=== PATIENT | male | born 1965 | race African-American/Black ===

== ENCOUNTER 2016-08-15 03:31 | Emergency (ER) | payer MEDICAID ==
[~2016-08-15] VITALS: Ht 185.4 cm; Wt 88.0 kg
[~2016-08-15 03:31] MED LIST: INSULIN
[2016-08-15] MEDS ORDERED: KETOROLAC 60MG/2ML VIAL IM ONE (05:00)
[2016-08-15 05:30] VITALS: BP 158/93
== END 2016-08-15 07:00 | disposition home or self-care (01) ==
LOC: ER 03:53
DX: S80.02XA Contusion of left knee, initial encounter (principal); E11.9 Type 2 diabetes mellitus without complications; I10 Essential (primary) hypertension; Z79.4 Long term (current) use of insulin; W01.0XXA Fall on same level from slipping, tripping and stumbling without subsequent striking against object, initial encounter; Y93.89 Activity, other specified; Y92.89 Other specified places as the place of occurrence of the external cause; Y99.8 Other external cause status
CPT/HCPCS: 73562; 82962; 96372; 99284; J1885

== ENCOUNTER 2016-08-19 12:29 | Emergency (ER) | payer MEDICAID ==
[~2016-08-19] VITALS: Ht 182.9 cm; Wt 81.0 kg
[2016-08-19 12:37] VITALS: BP 128/76
[2016-08-19] MEDS ORDERED: KETOROLAC 60MG/2ML VIAL IM ONE (13:15)
== END 2016-08-19 13:56 | disposition home or self-care (01) ==
LOC: ER 12:35
DX: M54.5 Low back pain (principal); E11.9 Type 2 diabetes mellitus without complications; E78.00 Pure hypercholesterolemia, unspecified; I10 Essential (primary) hypertension
CPT/HCPCS: 96372; 99283; J1885

== ENCOUNTER 2016-11-06 06:00 | Emergency (ER) | payer MEDICAID ==
[~2016-11-06] VITALS: Ht 182.9 cm; Wt 100.0 kg
[2016-11-06] MEDS ORDERED: TRAMADOL 50MG TABLET PO ONE (06:45)
[2016-11-06] MEDS ORDERED: TETANUS, DIPHTHERIA, PERTUSSIS VAC/PF 0.5ML (>7YR OLD) IM ONE (06:45)
[2016-11-06 09:23] VITALS: BP 150/89
== END 2016-11-06 09:24 | disposition home or self-care (01) ==
LOC: ER 06:00
DX: M25.521 Pain in right elbow (principal); E11.9 Type 2 diabetes mellitus without complications
CPT/HCPCS: 73060; 73070; 82962; 90471; 90715; 99284; A4565

== ENCOUNTER 2017-03-16 10:02 | Emergency (ER) | payer MEDICAID ==
[~2017-03-16] VITALS: Ht 185.4 cm; Wt 91.0 kg
[2017-03-16] MEDS ORDERED: KETOROLAC 60MG/2ML VIAL IM ONE (13:00)
[2017-03-16] MEDS ORDERED: HYDROCODONE/ACETAMINOPHEN 5/325MG TABLET PO ONE (13:00)
[2017-03-16 13:14] VITALS: BP 144/90
== END 2017-03-16 14:23 | disposition left against medical advice (07) ==
LOC: ER 12:05
DX: M25.551 Pain in right hip (principal); V00.148A Other scooter (nonmotorized) accident, initial encounter; Y92.89 Other specified places as the place of occurrence of the external cause; F12.90 Cannabis use, unspecified, uncomplicated; E11.9 Type 2 diabetes mellitus without complications; Z79.4 Long term (current) use of insulin
CPT/HCPCS: 73502; 96372; 99284; J1885

== ENCOUNTER 2017-06-09 05:29 | Emergency (ER) | payer MEDICAID ==
[~2017-06-09] VITALS: Ht 185.4 cm; Wt 91.0 kg
[2017-06-09] MEDS ORDERED: HYDROCODONE/ACETAMINOPHEN 5/325MG TABLET PO ONE (07:00)
[2017-06-09] MEDS ORDERED: TETANUS AND DIPHTHERIA TOX/PF 0.5ML SYR (ADULT) IM ONE (07:15)
[2017-06-09] MEDS ORDERED: TETANUS, DIPHTHERIA, PERTUSSIS VAC/PF 0.5ML (>7YR OLD) IM ONE (07:41)
[2017-06-09 08:05] LABS: BASOPHILS % 0.4 % (0.0-2.0); EOSINOPHILS % 0.3 % (0.0-5.0); HEMATOCRIT. 41.8 % (42.0-52.0); HEMOGLOBIN. 13.6 g/dL (14.0-18.0); LYMPHOCYTES % 13.6 % (20.0-50.0); MEAN CORPUSCULAR VOLUME 82.9 fL (80.0-94.0); MEAN PLATELET VOLUME 9.4 fl (7.4-10.4); MONOCYTES % 5.5 % (2.0-8.0); NEUTROPHILS % 80.2 % (40.0-76.0); PLATELET 206 x1000/uL (130-400); RED BLOOD CELL COUNT 5.04 mill/uL (4.7-6.1); RED CELL DISTRIBUTION WIDTH 12.7 % (11.6-14.6)
[2017-06-09 08:11] LABS: CHLORIDE 103 mEq/L (98-107)
[2017-06-09 08:19] LABS: PROTHROMBIN TIME 10.7 sec (9.4-11.6)
[2017-06-09 08:21] LABS: CARBON DIOXIDE 30 mEq/L (21-32)
[2017-06-09] MEDS ORDERED: LIDOCAINE HCL/PF 1% 2ML VIAL INFIL ONE (08:30)
[2017-06-09] MEDS ORDERED: LIDOCAINE HCL 1% 20ML VIAL (Pyxis) INJ INFIL ONE (08:45)
[2017-06-09 09:43] VITALS: BP 136/99
[2017-06-09] MEDS ORDERED: BACITRACIN ZINC OINT UDPKT TOP ONE (09:45)
== END 2017-06-09 09:56 | disposition home or self-care (01) ==
LOC: ER 05:29
DX: S20.212A Contusion of left front wall of thorax, initial encounter (principal); S00.01XA Abrasion of scalp, initial encounter; S61.212A Laceration without foreign body of right middle finger without damage to nail, initial encounter; Y93.55 Activity, bike riding; V16.4XXA Pedal cycle driver injured in collision with other nonmotor vehicle in traffic accident, initial encounter; Y92.414 Local residential or business street as the place of occurrence of the external cause; E11.9 Type 2 diabetes mellitus without complications; I10 Essential (primary) hypertension; Z23 Encounter for immunization; Z79.4 Long term (current) use of insulin; D72.829 Elevated white blood cell count, unspecified; R79.89 Other specified abnormal findings of blood chemistry
CPT/HCPCS: 12001; 36415; 71101; 80053; 85025; 85610; 90471; 90715; 99285; J3490; X7700; Z7610; 90714

== ENCOUNTER 2017-06-10 07:33 | Emergency (ER) | payer MEDICAID ==
[~2017-06-10] VITALS: Ht 177.8 cm; Wt 80.0 kg
[2017-06-10] MEDS ORDERED: ACETAMINOPHEN 500MG TABLET PO ONE (10:30)
[2017-06-10] MEDS ORDERED: IBUPROFEN 600MG TABLET PO ONE (11:00)
[2017-06-10 12:15] VITALS: BP 131/78
== END 2017-06-10 12:17 | disposition home or self-care (01) ==
LOC: ER 07:33
DX: S80.02XA Contusion of left knee, initial encounter (principal); S60.221A Contusion of right hand, initial encounter; I10 Essential (primary) hypertension; E11.9 Type 2 diabetes mellitus without complications; Z79.4 Long term (current) use of insulin; V13.4XXA Pedal cycle driver injured in collision with car, pick-up truck or van in traffic accident, initial encounter; Y93.55 Activity, bike riding; Y92.89 Other specified places as the place of occurrence of the external cause; Y99.8 Other external cause status
CPT/HCPCS: 73130; 73562; 99284; Z7610

== ENCOUNTER 2017-06-15 10:33 | Emergency (ER) | payer MEDICAID ==
[~2017-06-15] VITALS: Ht 177.8 cm; Wt 89.0 kg
[2017-06-15 11:02] VITALS: BP 147/92
== END 2017-06-15 14:33 | disposition home or self-care (01) ==
LOC: ER 12:43
DX: Z48.02 Encounter for removal of sutures (principal)
CPT/HCPCS: 99281; Z7610

== ENCOUNTER 2017-11-06 07:08 | Emergency (ER) | payer MEDICAID ==
[~2017-11-06] VITALS: Ht 185.4 cm; Wt 87.0 kg
[2017-11-06] MEDS ORDERED: IBUPROFEN 600MG TABLET PO ONE (09:15)
[2017-11-06 10:07] VITALS: BP 139/93
== END 2017-11-06 10:21 | disposition home or self-care (01) ==
LOC: ER 07:08
DX: S93.492A Sprain of other ligament of left ankle, initial encounter (principal); E11.9 Type 2 diabetes mellitus without complications; I10 Essential (primary) hypertension; Z79.4 Long term (current) use of insulin; X50.1XXA Overexertion from prolonged static or awkward postures, initial encounter; Y93.89 Activity, other specified; Y92.89 Other specified places as the place of occurrence of the external cause; Y99.8 Other external cause status
CPT/HCPCS: 73610; 99284; Z7610

== ENCOUNTER 2018-02-01 15:26 | Emergency (ER) | payer MEDICAID ==
[~2018-02-01] VITALS: Ht 167.6 cm; Wt 94.3 kg
[2018-02-01] MEDS ORDERED: DIPHENHYDRAMINE 50MG/ML VIAL IV ONE (16:00)
[2018-02-01] MEDS ORDERED: MORPHINE SULFATE 2 MG/ML CPJ (NOT FOR IM USE) IV ONE (16:00)
[2018-02-01] MEDS ORDERED: METOCLOPRAMIDE HCL 10MG/2ML VIAL IV ONE (16:00)
[2018-02-01 17:16] LABS: CLARITY URINE CLEAR (CLEAR); COLOR URINE YELLOW (YELLOW); KETONES URINE NEGATIVE (NEGATIVE); LEUKOCYTE ESTERASE URINE NEGATIVE (NEGATIVE); NITRITE URINE NEGATIVE (NEGATIVE); OCCULT BLOOD URINE NEGATIVE (NEGATIVE); PH URINE 5.5 (4.5-8.0); PROTEIN URINE TRACE (NEGATIVE); SPECIFIC GRAVITY URINE 1.015 (1.005-1.030); UROBILINOGEN URINE 0.2 E.U./dL (0.2-1.0)
[2018-02-01 17:17] LABS: BASOPHILS % 0.3 % (0.0-2.0); EOSINOPHILS % 0.7 % (0.0-5.0); HEMATOCRIT. 40.4 % (42.0-52.0); HEMOGLOBIN. 13.4 g/dL (14.0-18.0); LYMPHOCYTES % 18.6 % (20.0-50.0); MEAN CORPUSCULAR HEMOGLOBIN 27.7 pg (28.0-32.0); MEAN CORPUSCULAR VOLUME 83.8 fL (80.0-94.0); MEAN PLATELET VOLUME 8.8 fl (7.4-10.4); MONOCYTES % 4.7 % (2.0-8.0); NEUTROPHILS % 75.7 % (40.0-76.0); PLATELET 266 x1000/uL (130-400); RED BLOOD CELL COUNT 4.82 mill/uL (4.7-6.1); RED CELL DISTRIBUTION WIDTH 13.6 % (11.6-14.6)
[2018-02-01 17:22] LABS: CHLORIDE 99 mEq/L (98-107)
[2018-02-01 17:23] LABS: PROTHROMBIN TIME 10.2 sec (9.1-11.1)
[2018-02-01 17:25] LABS: ETHANOL BLOOD < 10 mg/dL
[2018-02-01 17:28] LABS: LDL CHOLESTEROL 114 mg/dL (5-100)
[2018-02-01 17:28] LABS: *AMPHETAMINES SCREEN URINE NEGATIVE (NEGATIVE); *BARBITURATES SCREEN URINE NEGATIVE (NEGATIVE); *BENZODIAZEPINES SCREEN URINE NEGATIVE (NEGATIVE); *COCAINE SCREEN URINE NEGATIVE (NEGATIVE); METHADONE URINE SCREEN NEGATIVE (NEGATIVE)
[2018-02-01 17:29] LABS: CANNABINOID URINE SCREEN PRESUMTIVE POSITIVE (NEGATIVE); OPIATES URINE SCREEN NEGATIVE (NEGATIVE); PHENCYCLIDINE URINE SCREEN NEGATIVE (NEGATIVE)
[2018-02-01] MEDS ORDERED: ASPIRIN 325MG EC TABLET PO NR (18:15)
[2018-02-01 19:08] VITALS: BP 152/102
== END 2018-02-01 19:21 | disposition left against medical advice (07) ==
LOC: ER 15:26
DX: R51 Headache (principal); R29.810 Facial weakness; E11.9 Type 2 diabetes mellitus without complications; Z79.4 Long term (current) use of insulin
CPT/HCPCS: 36415; 70450; 71045; 80053; 80305; 81003; 82962; 83721; 84484; 85025; 85610; 93005; 96374; 96375; 99285; G0482; J1200; J2270; J2765; Z7610

== ENCOUNTER 2018-02-15 04:52 | Emergency (ER) | payer MEDICAID ==
[~2018-02-15] VITALS: Ht 185.4 cm; Wt 74.0 kg
[2018-02-15] MEDS ORDERED: KETOROLAC 15MG/ML VIAL IM ONE (08:00)
[2018-02-15 09:46] VITALS: BP 140/86
== END 2018-02-15 09:49 | disposition home or self-care (01) ==
LOC: ER 04:52
DX: M25.562 Pain in left knee (principal); E11.9 Type 2 diabetes mellitus without complications; F11.10 Opioid abuse, uncomplicated; W01.0XXA Fall on same level from slipping, tripping and stumbling without subsequent striking against object, initial encounter; Y93.89 Activity, other specified; Y92.018 Other place in single-family (private) house as the place of occurrence of the external cause
CPT/HCPCS: 73562; 96372; 99284; J1885

== ENCOUNTER 2018-11-12 04:32 | Emergency (ER) | payer MEDICAID ==
[~2018-11-12] VITALS: Ht 185.4 cm; Wt 91.0 kg
[2018-11-12] MEDS ORDERED: IBUPROFEN 600MG TABLET PO ONE (06:45)
[2018-11-12] MEDS ORDERED: KETOROLAC 30MG/ML VIAL IM ONE (07:15)
[2018-11-12 09:31] VITALS: BP 160/98
== END 2018-11-12 09:37 | disposition home or self-care (01) ==
LOC: ER 04:32
DX: S93.601A Unspecified sprain of right foot, initial encounter (principal); S93.401A Sprain of unspecified ligament of right ankle, initial encounter; E11.9 Type 2 diabetes mellitus without complications; W01.0XXA Fall on same level from slipping, tripping and stumbling without subsequent striking against object, initial encounter; Y93.89 Activity, other specified; Y92.89 Other specified places as the place of occurrence of the external cause; Y99.8 Other external cause status
CPT/HCPCS: 73610; 73630; 96372; 99283; J1885

== ENCOUNTER 2018-12-19 13:08 | Emergency (ER) | payer MEDICAID ==
[~2018-12-19] VITALS: Ht 208.3 cm; Wt 91.0 kg
[2018-12-19] MEDS: HYDROCODONE/ACETAMINOPHEN 5/325MG TABLET PO NR ×2 (16:22→16:32)
[2018-12-19 16:36] VITALS: BP 145/78
== END 2018-12-19 16:40 | disposition home or self-care (01) ==
LOC: ER 15:04
DX: S02.80XA Fracture of other specified skull and facial bones, unspecified side, initial encounter for closed fracture (principal); E11.9 Type 2 diabetes mellitus without complications; Y08.89XA Assault by other specified means, initial encounter; Y93.89 Activity, other specified; Y92.89 Other specified places as the place of occurrence of the external cause; Y99.8 Other external cause status
CPT/HCPCS: 70486; 99284

== ENCOUNTER 2019-01-26 22:46 | Emergency (ER) | payer MEDICAID ==
[~2019-01-26] VITALS: Ht 185.4 cm; Wt 90.0 kg
[2019-01-27] MEDS ORDERED: KETOROLAC 60MG/2ML VIAL IM ONE (03:00)
[2019-01-27 04:45] VITALS: BP 153/97
== END 2019-01-27 04:56 | disposition home or self-care (01) ==
LOC: ER 22:46
DX: R51 Headache (principal); E11.9 Type 2 diabetes mellitus without complications; I10 Essential (primary) hypertension; Z79.4 Long term (current) use of insulin
CPT/HCPCS: 96372; 99283; J1885

== ENCOUNTER 2019-10-04 08:24 | Emergency (ER) | payer MEDICAID ==
[~2019-10-04] VITALS: Ht 185.4 cm; Wt 88.0 kg
[2019-10-04] MEDS ORDERED: KETOROLAC 30MG/ML VIAL IM ONE (09:00)
[2019-10-04 10:36] VITALS: BP 185/90
== END 2019-10-04 10:37 | disposition home or self-care (01) ==
LOC: ER 08:24
DX: M25.551 Pain in right hip (principal); E11.9 Type 2 diabetes mellitus without complications; I10 Essential (primary) hypertension; V18.0XXA Pedal cycle driver injured in noncollision transport accident in nontraffic accident, initial encounter; Y93.89 Activity, other specified; Y92.89 Other specified places as the place of occurrence of the external cause; Y99.8 Other external cause status
CPT/HCPCS: 73502; 96372; 99283; J1885

== ENCOUNTER 2020-03-08 00:47 | Emergency (ER) | payer MEDICAID ==
[~2020-03-08] VITALS: Ht 185.4 cm; Wt 91.0 kg
[2020-03-08] MEDS ORDERED: MORPHINE SULFATE 10 MG/ML CPJ IM ONE (01:15)
[2020-03-08] MEDS ORDERED: MORPHINE SULFATE 4 MG/ML CPJ (NOT FOR IM USE) IV ONE (03:00)
[2020-03-08] MEDS ORDERED: ONDANSETRON HCL 4MG/2ML INJ IV ONE (03:00)
[2020-03-08 03:57] VITALS: BP 149/99
== END 2020-03-08 03:57 | disposition home or self-care (01) ==
LOC: ER 00:47
DX: S00.83XA Contusion of other part of head, initial encounter (principal); E11.9 Type 2 diabetes mellitus without complications; I10 Essential (primary) hypertension; V19.88XA Pedal cyclist (driver) (passenger) injured in other specified transport accidents, initial encounter; Y93.89 Activity, other specified; Y92.89 Other specified places as the place of occurrence of the external cause; Y99.8 Other external cause status
CPT/HCPCS: 70450; 70486; 96372; 96374; 96375; 99285; J2270; J2405

== ENCOUNTER 2020-09-22 16:41 | Emergency (ER) | payer MEDICAID ==
[~2020-09-22] VITALS: Ht 185.4 cm; Wt 91.0 kg
[2020-09-22] MEDS ORDERED: NEOMYCIN-POLYMYXIN B-HYDROCORTISONE 1% OTIC SOLN 10ML LEFT EAR ONE (17:15)
[2020-09-22] MEDS ORDERED: ACETAMINOPHEN 325MG TABLET PO ONE (17:15)
[2020-09-22 17:46] VITALS: BP 135/90
== END 2020-09-22 17:56 | disposition home or self-care (01) ==
LOC: ER 16:41
DX: H60.92 Unspecified otitis externa, left ear (principal); E11.9 Type 2 diabetes mellitus without complications; I10 Essential (primary) hypertension
CPT/HCPCS: 82962; 99282

== ENCOUNTER 2020-09-26 00:13 | Emergency (ER) | payer MEDICAID ==
[~2020-09-26] VITALS: Ht 185.4 cm; Wt 91.0 kg
[2020-09-26] MEDS ORDERED: CIPDEX LEFT EAR (00:58)
[2020-09-26] MEDS ORDERED: IBUP-2028 MT (00:58)
[2020-09-26] MEDS ORDERED: IBUPROFEN 400MG TABLET PO ONE (01:00)
[2020-09-26 01:22] VITALS: BP 148/93
== END 2020-09-26 01:24 | disposition home or self-care (01) ==
LOC: ER 00:13
DX: H60.92 Unspecified otitis externa, left ear (principal); E11.9 Type 2 diabetes mellitus without complications; I10 Essential (primary) hypertension; Z79.4 Long term (current) use of insulin
CPT/HCPCS: 99283

== ENCOUNTER 2020-11-28 17:22 | Emergency (ER) | payer MEDICAID ==
[~2020-11-28] VITALS: Ht 177.8 cm; Wt 91.0 kg
[~2020-11-28 17:22] MED LIST changes: +CIPDEX LEFT EAR; +IBUP-2028 MT
[2020-11-28] MEDS ORDERED: BACITRACIN ZINC OINT UDPKT TOP NR (18:45)
[2020-11-28] MEDS ORDERED: BACITRACIN 15GM TUBE TOP ONE (18:45)
[2020-11-28] MEDS ORDERED: ACETAMINOPHEN 325MG TABLET PO ONE (18:45)
[2020-11-28] MEDS ORDERED: KETOROLAC 15MG/ML VIAL IM NR (18:45)
[2020-11-28] MEDS ORDERED: TETANUS, DIPHTHERIA, PERTUSSIS VAC/PF 0.5ML (>7YR OLD) IM ONE (18:45)
[2020-11-28] MEDS ORDERED: KETOROLAC 60MG/2ML VIAL IM ONE (18:45)
[2020-11-28 18:55] VITALS: BP 154/98
== END 2020-11-28 19:18 | disposition home or self-care (01) ==
LOC: ER 17:22
DX: S80.812A Abrasion, left lower leg, initial encounter (principal); I10 Essential (primary) hypertension; E11.9 Type 2 diabetes mellitus without complications; V19.3XXA Pedal cyclist (driver) (passenger) injured in unspecified nontraffic accident, initial encounter; Y93.55 Activity, bike riding; Y92.9 Unspecified place or not applicable; Z79.4 Long term (current) use of insulin
CPT/HCPCS: 90471; 90715; 96372; 99284; J1885

== ENCOUNTER 2020-12-25 08:16 | Emergency (ER) | payer MEDICAID ==
[~2020-12-25] VITALS: Ht 185.4 cm; Wt 91.0 kg
[~2020-12-25 08:16] MED LIST changes: +BO1 TP; +IBUP-2029 MT
[2020-12-25] MEDS ORDERED: TETANUS, DIPHTHERIA, PERTUSSIS VAC/PF 0.5ML (>7YR OLD) IM ONE (08:45)
[2020-12-25] MEDS ORDERED: LIDOCAINE HCL/EPINEPHRINE 1%-EPI 1:100,000 20 ML VIAL INFIL ONE (08:45)
[2020-12-25] MEDS ORDERED: BACITRACIN ZINC OINT UDPKT TOP ONE (08:45)
[2020-12-25] MEDS ORDERED: IBUPROFEN 600MG TABLET PO ONE (08:45)
[2020-12-25] MEDS ORDERED: CEPH500T MT (09:56)
[2020-12-25] MEDS ORDERED: KETOROLAC 60MG/2ML VIAL IM ONE (10:00)
[2020-12-25 10:35] VITALS: BP 118/88
== END 2020-12-25 11:33 | disposition home or self-care (01) ==
LOC: ER 08:16
DX: L02.414 Cutaneous abscess of left upper limb (principal); I10 Essential (primary) hypertension; E11.9 Type 2 diabetes mellitus without complications
CPT/HCPCS: 10060; 73070; 96372; 99284; J1885; J3490; Z7610; 90715

== ENCOUNTER 2020-12-26 16:49 | Emergency (ER) | payer MEDICAID ==
[~2020-12-26] VITALS: Ht 185.4 cm; Wt 90.0 kg
[~2020-12-26 16:49] MED LIST changes: +CEPH500T MT
[2020-12-26 17:33] VITALS: BP 154/95
[2020-12-27] MEDS ORDERED: IBUP-2028 MT (14:50)
[2020-12-27] MEDS ORDERED: SULF1TAB48 MT (14:50)
== END 2020-12-26 18:55 | disposition left against medical advice (07) ==
LOC: ER 16:49
DX: Z53.21 Procedure and treatment not carried out due to patient leaving prior to being seen by health care provider (principal); E11.9 Type 2 diabetes mellitus without complications; I10 Essential (primary) hypertension

== ENCOUNTER 2020-12-27 12:59 | Emergency (ER) | payer MEDICAID ==
[~2020-12-27] VITALS: Ht 172.7 cm; Wt 90.0 kg
[2020-12-27 13:08] VITALS: BP 144/114
[2020-12-27] MEDS ORDERED: IBUP-2028 MT (14:50)
[2020-12-27] MEDS ORDERED: SULF1TAB48 MT (14:50)
[2020-12-27] MEDS ORDERED: KETOROLAC 30MG/ML VIAL IM ONE (15:00)
[2020-12-27] MEDS ORDERED: BACITRACIN ZINC OINT UDPKT TOP ONE (15:00)
== END 2020-12-27 15:21 | disposition home or self-care (01) ==
LOC: ER 12:59
DX: L02.414 Cutaneous abscess of left upper limb (principal); E11.9 Type 2 diabetes mellitus without complications; I10 Essential (primary) hypertension; Z79.4 Long term (current) use of insulin
CPT/HCPCS: 96372; 99283; J1885

== ENCOUNTER 2020-12-29 02:47 | Emergency (ER) | payer MEDICAID ==
[~2020-12-29] VITALS: Ht 185.4 cm; Wt 91.0 kg
[~2020-12-29 02:47] MED LIST changes: +SULF1TAB48 MT
[2020-12-29 03:20] VITALS: BP 135/76
== END 2020-12-29 06:49 | disposition left against medical advice (07) ==
LOC: ER 02:47
DX: Z53.21 Procedure and treatment not carried out due to patient leaving prior to being seen by health care provider (principal)

== ENCOUNTER 2021-01-17 10:23 | Emergency (ER) | payer MEDICAID ==
[~2021-01-17] VITALS: Ht 185.4 cm; Wt 91.0 kg
[~2021-01-17 10:23] MED LIST changes: -CIPDEX LEFT EAR
[2021-01-17 10:28] VITALS: BP 138/87
[2021-01-18] MEDS ORDERED: IBUP-2028 MT (06:01)
[2021-01-18] MEDS ORDERED: IBUP-2029 MT (06:13)
== END 2021-01-17 14:47 | disposition left against medical advice (07) ==
LOC: ER 10:23
DX: Z53.21 Procedure and treatment not carried out due to patient leaving prior to being seen by health care provider (principal)

== ENCOUNTER 2021-01-18 04:22 | Emergency (ER) | payer MEDICAID ==
[~2021-01-18] VITALS: Ht 185.4 cm; Wt 90.0 kg
[2021-01-18] MEDS ORDERED: KETOROLAC 15MG/ML VIAL IV ONE (05:30)
[2021-01-18] MEDS ORDERED: IBUP-2028 MT (06:01)
[2021-01-18] MEDS ORDERED: IBUP-2029 MT (06:13)
[2021-01-18 06:15] VITALS: BP 138/79
== END 2021-01-18 06:10 | disposition home or self-care (01) ==
LOC: ER 04:22
DX: M25.522 Pain in left elbow (principal); I10 Essential (primary) hypertension; E11.9 Type 2 diabetes mellitus without complications; Z79.4 Long term (current) use of insulin; Z79.899 Other long term (current) drug therapy
CPT/HCPCS: 96374; 99283; J1885

== ENCOUNTER 2021-01-22 04:20 | Emergency (ER) | payer MEDICAID ==
[~2021-01-22] VITALS: Ht 185.4 cm; Wt 91.0 kg
[2021-01-22 04:26] VITALS: BP 145/94
[2021-01-22] MEDS ORDERED: CYCLOBENZAPRINE 10MG TABLET PO ONE (05:15)
[2021-01-22] MEDS ORDERED: NAPR-1176 MT (06:31)
[2021-01-22] MEDS ORDERED: CYCL10TA7 MT (06:31)
[2021-01-22] MEDS ORDERED: CLIN300C12 MT (06:34)
== END 2021-01-22 06:53 | disposition home or self-care (01) ==
LOC: ER 04:20
DX: S50.02XA Contusion of left elbow, initial encounter (principal); E11.9 Type 2 diabetes mellitus without complications; I10 Essential (primary) hypertension; Z79.899 Other long term (current) drug therapy; X58.XXXA Exposure to other specified factors, initial encounter; Y93.89 Activity, other specified; Y92.89 Other specified places as the place of occurrence of the external cause; Y99.8 Other external cause status
CPT/HCPCS: 73200; 99284

== ENCOUNTER 2021-03-06 11:01 | Emergency (ER) | payer MEDICAID ==
[~2021-03-06] VITALS: Ht 157.5 cm; Wt 97.0 kg
[~2021-03-06 11:01] MED LIST changes: +CLIN300C12 MT; +CYCL10TA7 MT; +NAPR-1176 MT
[2021-03-06] MEDS ORDERED: IBUPROFEN 600MG TABLET PO ONE (11:30)
[2021-03-06] MEDS ORDERED: ACETAMINOPHEN WITH CODEINE 300/30MG TABLET PO ONE (11:30)
[2021-03-06 11:40] VITALS: BP 180/93
[2021-03-06] MEDS ORDERED: KETOROLAC 30MG/ML VIAL IM ONE (11:45)
[2021-03-06] MEDS ORDERED: IBUP-2029 MT (12:50)
[2021-03-06] MEDS ORDERED: ACET-2708 MT (12:50)
== END 2021-03-06 13:29 | disposition home or self-care (01) ==
LOC: ER 11:01
DX: S90.02XA Contusion of left ankle, initial encounter (principal); S90.32XA Contusion of left foot, initial encounter; W01.0XXA Fall on same level from slipping, tripping and stumbling without subsequent striking against object, initial encounter; Y93.9 Activity, unspecified; Y92.9 Unspecified place or not applicable
CPT/HCPCS: 73610; 73630; 96372; 99284; J1885

== ENCOUNTER 2021-04-08 08:36 | Emergency (ER) | payer MEDICAID ==
[~2021-04-08] VITALS: Ht 185.4 cm; Wt 96.0 kg
[~2021-04-08 08:36] MED LIST changes: +ACET-2708 MT
[2021-04-08 08:41] VITALS: BP 168/100
[2021-04-08] MEDS ORDERED: KETOROLAC 60MG/2ML VIAL IM ONE (09:30)
[2021-04-08] MEDS ORDERED: TOPUD PO (09:31)
== END 2021-04-08 09:55 | disposition home or self-care (01) ==
LOC: ER 08:36
DX: M54.2 Cervicalgia (principal); M25.512 Pain in left shoulder; E11.9 Type 2 diabetes mellitus without complications; I10 Essential (primary) hypertension; Z79.4 Long term (current) use of insulin; V03.90XA Pedestrian on foot injured in collision with car, pick-up truck or van, unspecified whether traffic or nontraffic accident, initial encounter; Y93.89 Activity, other specified; Y92.488 Other paved roadways as the place of occurrence of the external cause
CPT/HCPCS: 96372; 99283; J1885

== ENCOUNTER 2021-04-08 20:07 | Emergency (ER) | payer MEDICAID ==
[~2021-04-08] VITALS: Ht 185.4 cm; Wt 95.7 kg
[~2021-04-08 20:07] MED LIST changes: +TOPUD PO
[2021-04-08 20:58] VITALS: BP 143/89
[2021-04-09 00:43] LABS: BASOPHILS % 0.6 % (0.0-2.0); HEMATOCRIT. 40.2 % (42.0-52.0); HEMOGLOBIN. 12.8 g/dL (14.0-18.0); LYMPHOCYTES % 27.7 % (20.0-50.0); MEAN CORPUSCULAR HEMOGLOBIN 27.1 pg (28.0-32.0); MEAN CORPUSCULAR VOLUME 85.1 fL (80.0-94.0); MEAN PLATELET VOLUME 8.4 fl (7.4-10.4); MONOCYTES % 7.7 % (2.0-8.0); PLATELET 203 x1000/uL (130-400); RED BLOOD CELL COUNT 4.72 mill/uL (4.7-6.1); RED CELL DISTRIBUTION WIDTH 13.8 % (11.6-14.6)
[2021-04-09] MEDS ORDERED: INSULIN GLARGINE UD 100 UNITS/ML SYR SUBCUT ONE (01:45)
== END 2021-04-09 02:22 | disposition left against medical advice (07) ==
LOC: ER 20:07
DX: E11.65 Type 2 diabetes mellitus with hyperglycemia (principal); I10 Essential (primary) hypertension; N28.9 Disorder of kidney and ureter, unspecified; Z79.899 Other long term (current) drug therapy
CPT/HCPCS: 36415; 80048; 82962; 85025; 96372; 99283; J1815

== ENCOUNTER 2021-04-09 16:02 | Emergency (ER) | payer MEDICAID ==
[~2021-04-09] VITALS: Ht 177.8 cm; Wt 90.0 kg
[2021-04-09] MEDS ORDERED: INSULIN GLARGINE UD 100 UNITS/ML SYR SUBCUT NR (20:30)
[2021-04-09 21:30] VITALS: BP 130/81
== END 2021-04-09 22:56 | disposition left against medical advice (07) ==
LOC: ER 16:02
DX: E11.65 Type 2 diabetes mellitus with hyperglycemia (principal); I10 Essential (primary) hypertension; Z79.899 Other long term (current) drug therapy
CPT/HCPCS: 82962; 96372; 99283; J1815

== ENCOUNTER 2021-04-10 16:39 | Emergency (ER) | payer MEDICAID ==
[~2021-04-10] VITALS: Ht 177.8 cm; Wt 100.0 kg
[2021-04-10 16:45] VITALS: BP 145/103
[2021-04-10] MEDS ORDERED: INSULIN GLARGINE UD 100 UNITS/ML SYR SUBCUT ONE (21:00)
== END 2021-04-10 22:07 | disposition left against medical advice (07) ==
LOC: ER 16:39
DX: Z76.0 Encounter for issue of repeat prescription (principal); E11.65 Type 2 diabetes mellitus with hyperglycemia; I10 Essential (primary) hypertension; Z79.4 Long term (current) use of insulin
CPT/HCPCS: 82962; 96372; 99283; J1815

== ENCOUNTER 2021-04-11 15:52 | Emergency (ER) | payer MEDICAID ==
[~2021-04-11] VITALS: Ht 185.4 cm; Wt 91.0 kg
[2021-04-11] MEDS ORDERED: INSULIN REGULAR (HUMULIN R) 300UNITS/3ML VIAL SUBCUT ONE (19:15)
[2021-04-11 19:50] VITALS: BP 141/77
== END 2021-04-11 20:00 | disposition home or self-care (01) ==
LOC: ER 15:52
DX: E11.65 Type 2 diabetes mellitus with hyperglycemia (principal); I10 Essential (primary) hypertension; Z79.4 Long term (current) use of insulin
CPT/HCPCS: 82962; 96372; 99283; J1815

== ENCOUNTER 2021-04-12 16:13 | Emergency (ER) | payer MEDICAID ==
[~2021-04-12] VITALS: Ht 185.4 cm; Wt 91.0 kg
[2021-04-12 16:25] VITALS: BP 136/100
[2021-04-12] MEDS ORDERED: INSULIN GLARGINE UD 100 UNITS/ML SYR SUBCUT ONE (16:45)
== END 2021-04-12 18:06 | disposition home or self-care (01) ==
LOC: ER 16:13
DX: E11.65 Type 2 diabetes mellitus with hyperglycemia (principal); I10 Essential (primary) hypertension; Z79.899 Other long term (current) drug therapy
CPT/HCPCS: 82962; 96372; 99283; J1815

== ENCOUNTER 2021-07-01 15:25 | Emergency (ER) | payer MEDICAID ==
[~2021-07-01] VITALS: Ht 185.4 cm; Wt 91.0 kg
[2021-07-01] MEDS ORDERED: KETOROLAC 60MG/2ML VIAL IM ONE (17:00)
[2021-07-01] MEDS ORDERED: NAPR-1176 MT (17:06)
[2021-07-01 17:20] VITALS: BP 130/81
== END 2021-07-01 17:21 | disposition home or self-care (01) ==
LOC: ER 15:25
DX: M19.012 Primary osteoarthritis, left shoulder (principal); M25.512 Pain in left shoulder; E11.9 Type 2 diabetes mellitus without complications; I10 Essential (primary) hypertension; Z79.4 Long term (current) use of insulin
CPT/HCPCS: 73030; 96372; 99283; J1885

== ENCOUNTER 2021-12-19 09:21 | Emergency (ER) | payer MEDICAID ==
[~2021-12-19] VITALS: Ht 182.9 cm; Wt 91.0 kg
[~2021-12-19 09:21] MED LIST changes: +CLIN-194 MT; -CLIN300C12 MT; +CYCL10TA21 MT; -CYCL10TA7 MT
[2021-12-19] MEDS ORDERED: KETOROLAC 60MG/2ML VIAL IM ONE (10:00)
[2021-12-19 11:07] VITALS: BP 163/97
[2021-12-19 11:22] LABS: BASOPHILS % 0.5 % (0.0-2.0); EOSINOPHILS % 1.9 % (0.0-5.0); HEMATOCRIT. 40.8 % (42.0-52.0); HEMOGLOBIN. 13.5 g/dL (14.0-18.0); LYMPHOCYTES % 25.8 % (20.0-50.0); MEAN CORPUSCULAR HEMOGLOBIN 27.7 pg (28.0-32.0); MEAN CORPUSCULAR VOLUME 83.8 fL (80.0-94.0); MEAN PLATELET VOLUME 8.8 fl (7.4-10.4); MONOCYTES % 6.4 % (2.0-8.0); NEUTROPHILS % 65.4 % (40.0-76.0); PLATELET 204 x1000/uL (130-400); RED BLOOD CELL COUNT 4.87 mill/uL (4.7-6.1); RED CELL DISTRIBUTION WIDTH 13.8 % (11.6-14.6)
[2021-12-19 11:27] LABS: CHLORIDE 108 mEq/L (98-107)
[2021-12-19] MEDS ORDERED: IBUP-2029 MT (12:02)
[2021-12-19] MEDS ORDERED: SULF1TAB48 MT (12:02)
[2021-12-19] MEDS ORDERED: CEPH500C2 MT (12:02)
[2021-12-19] MEDS ORDERED: HYDR-4001 MT ×2 (12:08→12:35)
== END 2021-12-19 13:09 | disposition home or self-care (01) ==
LOC: ER 09:21
DX: S49.82XA Other specified injuries of left shoulder and upper arm, initial encounter (principal); M71.341 Other bursal cyst, right hand; E11.9 Type 2 diabetes mellitus without complications; E78.00 Pure hypercholesterolemia, unspecified; I10 Essential (primary) hypertension; W01.0XXA Fall on same level from slipping, tripping and stumbling without subsequent striking against object, initial encounter; Y93.89 Activity, other specified; Y92.9 Unspecified place or not applicable; Z98.890 Other specified postprocedural states
CPT/HCPCS: 36415; 73060; 73070; 73090; 73120; 80053; 85025; 87070; 87205; 89050; 96372; 99284; J1885

== ENCOUNTER 2022-01-18 11:39 | Emergency (ER) | payer MEDICAID ==
[~2022-01-18] VITALS: Ht 185.4 cm; Wt 94.0 kg
[~2022-01-18 11:39] MED LIST changes: +CEPH500C2 MT; +HYDR-4001 MT
[2022-01-18 11:42] VITALS: BP 161/100
[2022-01-18] MEDS ORDERED: KETOROLAC 60MG/2ML VIAL IM STA (12:41)
[2022-01-18] MEDS ORDERED: NAPR-681 PO (15:02)
[2022-01-18] MEDS ORDERED: T3 PO (15:02)
== END 2022-01-18 15:47 | disposition home or self-care (01) ==
LOC: ER 13:06
DX: M25.561 Pain in right knee (principal); S80.01XA Contusion of right knee, initial encounter; E11.9 Type 2 diabetes mellitus without complications; I10 Essential (primary) hypertension; W10.9XXA Fall (on) (from) unspecified stairs and steps, initial encounter; Y93.01 Activity, walking, marching and hiking; Y92.9 Unspecified place or not applicable; Z79.4 Long term (current) use of insulin
CPT/HCPCS: 73562; 96372; 99283; J1885

== ENCOUNTER 2022-03-12 10:11 | Emergency (ER) | payer MEDICAID ==
[~2022-03-12] VITALS: Ht 185.4 cm; Wt 91.0 kg
[~2022-03-12 10:11] MED LIST changes: +NAPR-681 PO; +T3 PO
[2022-03-12] MEDS ORDERED: KETOROLAC 15MG/ML VIAL IM ONE (11:00)
[2022-03-12 11:48] VITALS: BP 143/101
[2022-03-12] MEDS ORDERED: ACET-2708 MT (12:42)
== END 2022-03-12 13:00 | disposition home or self-care (01) ==
LOC: ER 10:11
DX: R60.9 Edema, unspecified (principal); M20.021 Boutonniere deformity of right finger(s); I10 Essential (primary) hypertension; E11.9 Type 2 diabetes mellitus without complications; Z79.4 Long term (current) use of insulin; V49.9XXA Car occupant (driver) (passenger) injured in unspecified traffic accident, initial encounter; Y93.89 Activity, other specified; Y92.89 Other specified places as the place of occurrence of the external cause
CPT/HCPCS: 73120; 96372; 99283; J1885

== ENCOUNTER 2022-09-05 14:10 | Emergency (ER) | payer MEDICAID ==
[~2022-09-05] VITALS: Ht 177.8 cm; Wt 80.0 kg
[2022-09-05 14:14] VITALS: BP 148/97
[2022-09-05] MEDS ORDERED: IBUP-2029 MT (15:47)
[2022-09-05] MEDS ORDERED: KETOROLAC 60MG/2ML VIAL IM ONE (16:00)
== END 2022-09-05 16:33 | disposition home or self-care (01) ==
LOC: ER 14:10
DX: S80.01XA Contusion of right knee, initial encounter (principal); I10 Essential (primary) hypertension; E11.9 Type 2 diabetes mellitus without complications; Z79.899 Other long term (current) drug therapy; W18.30XA Fall on same level, unspecified, initial encounter; Y93.89 Activity, other specified; Y92.89 Other specified places as the place of occurrence of the external cause; Y99.8 Other external cause status
CPT/HCPCS: 73562; 96372; 99283; J1885

== ENCOUNTER 2022-12-18 07:58 | Emergency (ER) | payer MEDICAID, OTHER ==
[~2022-12-18] VITALS: Ht 177.8 cm; Wt 90.0 kg
[2022-12-18 08:09] VITALS: TEMP 98.7; O2SAT 100
[2022-12-18] MEDS ORDERED: IBUPROFEN 800MG TABLET PO ONE (08:30)
[2022-12-18 08:45] VITALS: BP 167/97; PULSE 95; RESP 20
[2022-12-18] MEDS ORDERED: KETOROLAC 30MG/ML VIAL IM ONE (08:45)
[2022-12-18] MEDS ORDERED: IBUP-2029 MT (08:54)
[2022-12-18] MEDS ORDERED: IBUPROFEN 400MG TABLET PO NR (10:15)
== END 2022-12-18 08:56 | disposition home or self-care (01) ==
LOC: ER 07:58
DX: M25.511 Pain in right shoulder (principal); E11.9 Type 2 diabetes mellitus without complications; I10 Essential (primary) hypertension; Z79.899 Other long term (current) drug therapy
CPT/HCPCS: 99283; 96372; J1885

== ENCOUNTER 2023-01-24 03:47 | Emergency (ER) | payer OTHER ==
[~2023-01-24] VITALS: Ht 185.4 cm; Wt 95.5 kg
[2023-01-24 03:52] VITALS: BP 174/102; RESP 12; TEMP 98; O2SAT 97
[2023-01-24 03:54] VITALS: PULSE 118
[2023-01-24] MEDS ORDERED: FAMOTIDINE 20MG TABLET PO ONE (06:15)
[2023-01-24] MEDS ORDERED: DEXAMETHASONE 10 MG/ML VIAL IM ONE (06:15)
[2023-01-24] MEDS ORDERED: DIPHENHYDRAMINE 50MG/ML VIAL IM ONE (06:15)
== END 2023-01-24 06:28 | disposition left against medical advice (07) ==
LOC: ER 04:02
DX: M25.521 Pain in right elbow (principal); M25.561 Pain in right knee; E11.9 Type 2 diabetes mellitus without complications; I10 Essential (primary) hypertension; Z79.899 Other long term (current) drug therapy; W01.0XXA Fall on same level from slipping, tripping and stumbling without subsequent striking against object, initial encounter; Y93.89 Activity, other specified; Y92.89 Other specified places as the place of occurrence of the external cause; Y99.8 Other external cause status
CPT/HCPCS: 99281

== ENCOUNTER 2023-02-19 12:57 | Emergency (ER) | payer MEDICAID, OTHER ==
[~2023-02-19] VITALS: Ht 182.9 cm; Wt 90.0 kg
[2023-02-19 13:08] VITALS: O2SAT 98
[2023-02-19] MEDS ORDERED: KETOROLAC 30MG/ML VIAL IM ONE (13:15)
[2023-02-19] MEDS ORDERED: NAPR-681 MT (13:17)
[2023-02-19 14:05] VITALS: BP 154/89; PULSE 69; RESP 16; TEMP 98.9
== END 2023-02-19 14:10 | disposition home or self-care (01) ==
LOC: ER 12:57
DX: S80.01XA Contusion of right knee, initial encounter (principal); E11.9 Type 2 diabetes mellitus without complications; I10 Essential (primary) hypertension; Z79.899 Other long term (current) drug therapy; W18.39XA Other fall on same level, initial encounter; Y93.89 Activity, other specified; Y92.89 Other specified places as the place of occurrence of the external cause; Y99.8 Other external cause status
CPT/HCPCS: 96372; 99283; J1885

== ENCOUNTER 2023-05-11 12:07 | Emergency (ER) | payer OTHER ==
[~2023-05-11] VITALS: Ht 185.4 cm; Wt 90.7 kg
[~2023-05-11 12:07] MED LIST changes: +NAPR-681 MT
[2023-05-11 12:11] VITALS: BP 178/113; RESP 16; TEMP 98.6; O2SAT 100
[2023-05-11 12:20] VITALS: PULSE 115
[2023-05-11] MEDS ORDERED: IBUPROFEN 800MG TABLET PO ONE (13:00)
[2023-05-11] MEDS ORDERED: ACETAMINOPHEN 325MG TABLET PO ONE (13:00)
[2023-05-11] MEDS ORDERED: KETOROLAC 60MG/2ML VIAL IM ONE (13:30)
[2023-05-11] MEDS ORDERED: ACET-2708 MT (15:20)
[2023-05-11] MEDS ORDERED: IBUP-2029 MT (15:20)
[2023-05-11] MEDS ORDERED: P50 MT (15:22)
== END 2023-05-11 17:53 | disposition home or self-care (01) ==
LOC: ER 12:07
DX: M79.641 Pain in right hand (principal); Z79.899 Other long term (current) drug therapy
CPT/HCPCS: 29130; 73130; 96372; 99283; J1885

== ENCOUNTER 2023-05-25 12:42 | Emergency (ER) | payer OTHER ==
[~2023-05-25] VITALS: Ht 180.3 cm; Wt 90.0 kg
[~2023-05-25 12:42] MED LIST changes: +P50 MT
[2023-05-25 12:57] VITALS: TEMP 98.8; O2SAT 99
[2023-05-25] MEDS ORDERED: IBUPROFEN 600MG TABLET PO ONE (13:15)
[2023-05-25] MEDS ORDERED: VANCOMYCIN 1G PREMIX 200 ML IV SCH (14:15)
[2023-05-25] MEDS ORDERED: PIPERACILLIN/TAZOBACTAM 3.375GM/50ML PREMIX IV ONE (14:15)
[2023-05-25] MEDS ORDERED: KETOROLAC 15MG/ML VIAL IV ONE (14:15)
[2023-05-25] MEDS ORDERED: SODIUM CHLORIDE 0.9% 500 ML IV ONE (14:15)
[2023-05-25] MEDS ORDERED: PIPERACILLIN/TAZ 3.375G PREMIX 50 ML IV NR (15:00)
[2023-05-25 16:59] LABS: BASOPHILS % 0.7 % (0.0-2.0); EOSINOPHILS % 0.8 % (0.0-5.0); HEMATOCRIT. 38.5 % (42.0-52.0); HEMOGLOBIN. 12.6 g/dL (14.0-18.0); LYMPHOCYTES % 10.3 % (20.0-50.0); MEAN CORPUSCULAR HEMOGLOBIN 26.6 pg (28.0-32.0); MEAN CORPUSCULAR HGB CONC 32.8 g/dL (31.0-37.0); MEAN CORPUSCULAR VOLUME 81.3 fL (80.0-94.0); MONOCYTES % 5.6 % (2.0-8.0); NEUTROPHILS % 82.6 % (40.0-76.0); PLATELET 163 x1000/uL (130-400); RED BLOOD CELL COUNT 4.73 mill/uL (4.7-6.1); RED CELL DISTRIBUTION WIDTH 13.3 % (11.6-14.6); WHITE BLOOD COUNT 11.9 x1000/uL (4.5-11.0)
[2023-05-25 17:10] LABS: ALANINE AMINOTRANSFERASE 28 IU/L (10-49); ALBUMIN 3.6 g/dL (3.2-4.8); ASPARTATE AMINOTRANSFERASE 22 IU/L (<34); BILIRUBIN TOTAL 0.6 mg/dL (0.1-1.0); CARBON DIOXIDE 25 mEq/L (21-32); CHLORIDE 98 mEq/L (98-107); CREATININE 3.4 mg/dL (0.6-1.3); POTASSIUM 4.3 mEq/L (3.5-5.1); PROTEIN TOTAL 6.6 g/dL (6.0-8.3); SODIUM 131 mEq/L (136-145); UREA NITROGEN BLOOD 59 mg/dL (9-23)
[2023-05-25 17:18] LABS: GLUCOSE 526 mg/dL (70-105)
[2023-05-25] MEDS ORDERED: ACETAMINOPHEN 500MG TABLET PO ONE (17:45)
[2023-05-25] MEDS ORDERED: SODIUM CHLORIDE 0.9% 1,000 ML IV ONE (17:45)
[2023-05-25] MEDS ORDERED: INSULIN GLARGINE 100 UNITS/ML SUBCUT ONE (18:30)
[2023-05-25] MEDS ORDERED: IBUPROFEN 600MG TABLET PO NR (20:45)
[2023-05-25] MEDS ORDERED: INSULIN GLARGINE 100 UNITS/ML SUBCUT NR (20:45)
[2023-05-25] MEDS ORDERED: PIPERACILLIN/TAZ 3.375G PREMIX 50 ML IV SCH (23:45)
[2023-05-26] MEDS ORDERED: KETOROLAC 15MG/ML VIAL IV ONE (04:00)
[2023-05-26 04:33] VITALS: BP 170/99; PULSE 104; RESP 15
[2023-05-26] MEDS ORDERED: PIPERACILLIN/TAZ 3.375G PREMIX 50 ML IV SCH (12:00)
== END 2023-05-26 07:05 | disposition left against medical advice (07) ==
LOC: ER 12:42
DX: M65.9 Synovitis and tenosynovitis, unspecified (principal); N28.9 Disorder of kidney and ureter, unspecified; E11.65 Type 2 diabetes mellitus with hyperglycemia; I10 Essential (primary) hypertension
CPT/HCPCS: 36415; 71045; 80053; 82962; 85025; 96365; 96366; 96368; 96372; 96375; 99284; J1815; J1885; J2543; J3370; J7030

== ENCOUNTER 2023-07-01 14:00 | Emergency (ER) | payer OTHER ==
[~2023-07-01] VITALS: Ht 180.3 cm; Wt 91.0 kg
[2023-07-01 14:11] VITALS: BP 159/93; PULSE 109; RESP 16; TEMP 98.5; O2SAT 100
[2023-07-01 14:40] LABS: BASOPHILS % 0.8 % (0.0-2.0); EOSINOPHILS % 1.2 % (0.0-5.0); HEMATOCRIT. 37.7 % (42.0-52.0); HEMOGLOBIN. 12.4 g/dL (14.0-18.0); LYMPHOCYTES % 17.2 % (20.0-50.0); MEAN CORPUSCULAR HEMOGLOBIN 28.5 pg (28.0-32.0); MEAN CORPUSCULAR HGB CONC 32.9 g/dL (31.0-37.0); MEAN CORPUSCULAR VOLUME 86.7 fL (80.0-94.0); MEAN PLATELET VOLUME 8.7 fl (7.4-10.4); MONOCYTES % 4.3 % (2.0-8.0); NEUTROPHILS % 76.5 % (40.0-76.0); PLATELET 218 x1000/uL (130-400); RED BLOOD CELL COUNT 4.34 mill/uL (4.7-6.1); RED CELL DISTRIBUTION WIDTH 14.1 % (11.6-14.6); WHITE BLOOD COUNT 8.7 x1000/uL (4.5-11.0)
[2023-07-01 14:56] LABS: ALANINE AMINOTRANSFERASE 24 IU/L (10-49); ALBUMIN 4.3 g/dL (3.2-4.8); ASPARTATE AMINOTRANSFERASE 17 IU/L (<34); BILIRUBIN TOTAL 0.2 mg/dL (0.1-1.0); CALCIUM 8.9 mg/dL (8.7-10.4); CARBON DIOXIDE 27 mEq/L (21-32); CHLORIDE 95 mEq/L (98-107); CREATININE 3.3 mg/dL (0.6-1.3); POTASSIUM 4.3 mEq/L (3.5-5.1); PROTEIN TOTAL 6.7 g/dL (6.0-8.3); SODIUM 131 mEq/L (136-145); TROPONIN I HIGH SENSITIVITY 5 ng/L (3.0-53); UREA NITROGEN BLOOD 40 mg/dL (9-23)
[2023-07-01 14:59] LABS: GLUCOSE 477 mg/dL (70-105)
[2023-07-01] MEDS ORDERED: SODIUM CHLORIDE 0.9% 1,000 ML IV ONE (15:15)
== END 2023-07-01 17:10 | disposition left against medical advice (07) ==
LOC: ER 14:00
DX: R07.89 Other chest pain (principal); I10 Essential (primary) hypertension; E11.65 Type 2 diabetes mellitus with hyperglycemia; Z98.890 Other specified postprocedural states; Z79.899 Other long term (current) drug therapy
CPT/HCPCS: 99284; 80053; 85025; 84484; 36415; 93005; J7030

== ENCOUNTER 2024-04-11 12:35 | Emergency (ER) | payer OTHER ==
[~2024-04-11] VITALS: Ht 182.9 cm; Wt 91.0 kg
[2024-04-11 12:42] VITALS: O2SAT 99
[2024-04-11 13:55] VITALS: BP 150/96; PULSE 98; RESP 18; TEMP 98.5; O2SAT 97
[2024-04-11] MEDS ORDERED: BLOO-1113 HHN (14:35)
== END 2024-04-11 14:44 | disposition home or self-care (01) ==
LOC: ER 12:35
DX: Z76.0 Encounter for issue of repeat prescription (principal); E11.9 Type 2 diabetes mellitus without complications; I10 Essential (primary) hypertension; Z98.890 Other specified postprocedural states
CPT/HCPCS: 99281

== ENCOUNTER 2024-05-16 13:15 | Emergency (ER) | payer OTHER ==
[~2024-05-16] VITALS: Ht 185.4 cm; Wt 83.0 kg
[~2024-05-16 13:15] MED LIST changes: +BLOO-1113 HHN
[2024-05-16 13:19] VITALS: O2SAT 100
[2024-05-16 13:25] VITALS: BP 172/112; PULSE 97; RESP 18; TEMP 98.6; O2SAT 99
== END 2024-05-16 17:48 | disposition left against medical advice (07) ==
LOC: ER 13:23
DX: Z76.0 Encounter for issue of repeat prescription (principal); Z53.21 Procedure and treatment not carried out due to patient leaving prior to being seen by health care provider

== ENCOUNTER 2024-05-20 13:04 | Emergency (ER) | payer OTHER ==
[~2024-05-20] VITALS: Ht 182.9 cm; Wt 91.0 kg
[2024-05-20 13:07] VITALS: BP 139/90; RESP 18; TEMP 98.1; O2SAT 99
[2024-05-20 13:12] VITALS: PULSE 114; O2SAT 99
[2024-05-20] MEDS ORDERED: BLOO-1113 HHN ×2 (14:14→14:27)
== END 2024-05-20 14:55 | disposition home or self-care (01) ==
LOC: ER 13:04
DX: Z76.0 Encounter for issue of repeat prescription (principal); E11.9 Type 2 diabetes mellitus without complications
CPT/HCPCS: 99281

== ENCOUNTER 2024-06-13 13:56 | Emergency (ER) | payer MEDICAID, OTHER ==
[~2024-06-13] VITALS: Ht 185.4 cm; Wt 91.0 kg
[2024-06-13 14:02] VITALS: BP 166/103; TEMP 98.4; O2SAT 100
[2024-06-13 14:35] VITALS: PULSE 64; RESP 18; O2SAT 99
== END 2024-06-13 15:39 | disposition home or self-care (01) ==
LOC: ER 13:56
DX: E11.9 Type 2 diabetes mellitus without complications (principal); I10 Essential (primary) hypertension; Z76.0 Encounter for issue of repeat prescription; Z79.899 Other long term (current) drug therapy
CPT/HCPCS: 99281

== ENCOUNTER 2024-10-13 17:20 | Inpatient (IN) | payer MEDICAID, OTHER ==
[~2024-10-13] VITALS: Ht 188 cm; Wt 86.8 kg
[2024-10-13 17:29] VITALS: O2SAT 99
[2024-10-13] MEDS: IBUPROFEN 600MG TABLET PO STA (21:00)
[2024-10-13 21:15] LABS: CLARITY URINE CLEAR (CLEAR); COLOR URINE YELLOW (YELLOW); GLUCOSE URINE 3+ (NEGATIVE); KETONES URINE NEGATIVE (NEGATIVE); LEUKOCYTE ESTERASE URINE NEGATIVE (NEGATIVE); NITRITE URINE NEGATIVE (NEGATIVE); OCCULT BLOOD URINE NEGATIVE (NEGATIVE); PH URINE 5.5 (4.5-8.0); PROTEIN URINE 2+ (NEGATIVE); SPECIFIC GRAVITY URINE 1.017 (1.005-1.030); UROBILINOGEN URINE 0.2 E.U./dL (0.2-1.0)
[2024-10-13 21:18] LABS: BASOPHILS % 0.3 % (0.0-2.0); EOSINOPHILS % 1.1 % (0.0-5.0); HEMATOCRIT. 36.7 % (42.0-52.0); HEMOGLOBIN. 11.7 g/dL (14.0-18.0); LYMPHOCYTES % 22.8 % (20.0-50.0); MEAN CORPUSCULAR HEMOGLOBIN 25.6 pg (28.0-32.0); MEAN CORPUSCULAR HGB CONC 31.8 g/dL (31.0-37.0); MEAN CORPUSCULAR VOLUME 80.3 fL (80.0-94.0); MEAN PLATELET VOLUME 9.2 fl (7.4-10.4); MONOCYTES % 6.2 % (2.0-8.0); NEUTROPHILS % 69.6 % (40.0-76.0); PLATELET 174 x1000/uL (130-400); RED BLOOD CELL COUNT 4.57 mill/uL (4.7-6.1); RED CELL DISTRIBUTION WIDTH 13.2 % (11.6-14.6); WHITE BLOOD COUNT 7.2 x1000/uL (4.5-11.0)
[2024-10-13 21:22] LABS: POTASSIUM 4.2 mEq/L (3.5-5.1)
[2024-10-13 21:23] LABS: CALCIUM 8.5 mg/dL (8.7-10.4)
[2024-10-13 21:28] LABS: CREATININE 3.6 mg/dL (0.6-1.3)
[2024-10-13 21:31] LABS: BACTERIA URINE NONE SEEN; RBC URINE 0-2 /hpf (0-2); SQUAMOUS EPITHELIAL CELL URINE RARE /lpf (RARE/1+); WBC URINE NONE SEEN /hpf (0-2)
[2024-10-13] MEDS: SODIUM CHLORIDE 0.9% 1,000 ML IV ONE (22:54)
[2024-10-13] MEDS: INSULIN GLARGINE 100 UNITS/ML SUBCUT ONE (23:03)
[2024-10-13] MEDS: INSULIN REGULAR (HUMULIN R) 1000UNITS/10ML VIAL SUBCUT ONE (23:04)
[2024-10-14] MEDS: INSULIN LISPRO 100 UNITS/ML SUBCUT NR (01:38)
[2024-10-14] MEDS ORDERED: DEXTROSE 50% WATER 50ML SYRINGE IV PRN (03:15)
[2024-10-14] MEDS: SODIUM CHLORIDE 0.9% 1,000 ML IV SCH (03:46)
[2024-10-14 04:00] VITALS: PULSE 110; RESP 22
[2024-10-14] MEDS ORDERED: ACETAMINOPHEN 650MG/20.3ML UDC PO PRN (04:00)
[2024-10-14] MEDS ORDERED: HYDROCODONE/ACETAMINOPHEN 5/325MG TABLET PO PRN (04:00)
[2024-10-14] MEDS ORDERED: NALOXONE HCL 0.4MG/ML VIAL IV PRN (04:15)
[2024-10-14 04:24] VITALS: BP 157/92; PULSE 110; RESP 19; TEMP 36.8
[2024-10-14] MEDS: INSULIN LISPRO 100 UNITS/ML SUBCUT SCH (07:15)
[2024-10-14] MEDS: BLOOD SUGAR DIAGNOSTIC STRIP TEST SCH (07:28)
[2024-10-14 07:44] LABS: BASOPHILS % 0.6 % (0.0-2.0); DIFFERENTIAL COMMENT 0; EOSINOPHILS % 3.2 % (0.0-5.0); HEMATOCRIT. 35.5 % (42.0-52.0); HEMOGLOBIN. 11.8 g/dL (14.0-18.0); LYMPHOCYTES % 34.7 % (20.0-50.0); MEAN CORPUSCULAR HGB CONC 33.2 g/dL (31.0-37.0); MEAN CORPUSCULAR VOLUME 78.2 fL (80.0-94.0); MEAN PLATELET VOLUME 9.2 fl (7.4-10.4); MONOCYTES % 8.2 % (2.0-8.0); NEUTROPHILS % 53.3 % (40.0-76.0); PLATELET 209 x1000/uL (130-400); RED BLOOD CELL COUNT 4.54 mill/uL (4.7-6.1); RED CELL DISTRIBUTION WIDTH 12.8 % (11.6-14.6); WHITE BLOOD COUNT 6.5 x1000/uL (4.5-11.0)
[2024-10-14 08:01] LABS: CHLORIDE 102 mEq/L (98-107); POTASSIUM 3.6 mEq/L (3.5-5.1); SODIUM 140 mEq/L (136-145)
[2024-10-14 08:02] LABS: CALCIUM 9.2 mg/dL (8.7-10.4); CARBON DIOXIDE 24 mEq/L (21-32)
[2024-10-14 08:07] LABS: CREATININE 3.3 mg/dL (0.6-1.3)
[2024-10-14 08:08] LABS: LDL CHOLESTEROL 110 mg/dL (5-100); TRIGLYCERIDE 94 mg/dL (0-150); UREA NITROGEN BLOOD 43 mg/dL (9-23)
[2024-10-14 08:09] LABS: ALANINE AMINOTRANSFERASE 12 IU/L (10-49); ALBUMIN 4.1 g/dL (3.2-4.8); ASPARTATE AMINOTRANSFERASE 13 IU/L (<34); CHOLESTEROL 175 mg/dL (<200)
[2024-10-14 08:10] LABS: BILIRUBIN TOTAL 0.5 mg/dL (0.1-1.0); HDL CHOLESTEROL 47 mg/dL (>55); PROTEIN TOTAL 6.6 g/dL (6.0-8.3)
[2024-10-14 08:26] VITALS: RESP 20
[2024-10-14 08:26] LABS: GLUCOSE 112 mg/dL (70-105)
[2024-10-14] MEDS: AMLODIPINE 10MG TABLET PO SCH (08:49)
[2024-10-14] MEDS: INSULIN GLARGINE 100 UNITS/ML SUBCUT SCH (10:00)
[2024-10-14 12:00] VITALS: BP 158/95; PULSE 101; RESP 18; TEMP 36.4; O2SAT 100
[2024-10-14] MEDS ORDERED: CYCLOBENZAPRINE 10MG TABLET PO SCH (21:00)
[2024-10-14] MEDS ORDERED: ATORVASTATIN CALCIUM 40MG TABLET PO SCH (21:00)
== END 2024-10-14 15:30 | disposition left against medical advice (07) | DRG 420 ==
LOC: ER 17:20 → 5WST 23:28 → ENRESERV 23:47
PROVIDERS: ADMIT Internal Medicine; ATTEND Internal Medicine
DX: E11.00 Type 2 diabetes mellitus with hyperosmolarity without nonketotic hyperglycemic-hyperosmolar coma (NKHHC) (principal); N17.9 Acute kidney failure, unspecified; N18.4 Chronic kidney disease, stage 4 (severe); E11.22 Type 2 diabetes mellitus with diabetic chronic kidney disease; E86.9 Volume depletion, unspecified; I12.9 Hypertensive chronic kidney disease with stage 1 through stage 4 chronic kidney disease, or unspecified chronic kidney disease; Z53.29 Procedure and treatment not carried out because of patient's decision for other reasons; Z82.49 Family history of ischemic heart disease and other diseases of the circulatory system; Z83.3 Family history of diabetes mellitus
CPT/HCPCS: 36415; 80048; 80053; 80061; 81003; 82962; 83036; 85025; 99285; J1815; J7030